=== PATIENT | male | born 1975 | race Two or more races ===

== ENCOUNTER 2023-12-30 13:05 | Emergency (ER) | payer MEDICAID, OTHER ==
[~2023-12-30] VITALS: Ht 170.2 cm; Wt 105.0 kg
[2023-12-30 13:19] VITALS: O2SAT 99
[2023-12-30] MEDS ORDERED: METH-653 MT (16:05)
[2023-12-30] MEDS ORDERED: IBUP-2029 MT (16:05)
[2023-12-30] MEDS: KETOROLAC 15MG/ML VIAL IM ONE (16:28)
[2023-12-30 16:30] VITALS: BP 138/88; PULSE 92; RESP 18; TEMP 36.83628; O2SAT 98
== END 2023-12-30 16:35 | disposition home or self-care (01) ==
LOC: ER 13:05
DX: S13.9XXA Sprain of joints and ligaments of unspecified parts of neck, initial encounter (principal); E11.9 Type 2 diabetes mellitus without complications; Z98.890 Other specified postprocedural states; V49.9XXA Car occupant (driver) (passenger) injured in unspecified traffic accident, initial encounter; Y93.89 Activity, other specified; Y92.89 Other specified places as the place of occurrence of the external cause; Y99.8 Other external cause status
CPT/HCPCS: 99285; 70450; 72125; 96372; J1885